=== PATIENT | male | born 1980 | race Caucasian/White ===

== ENCOUNTER → 2024-02-18 | Day surgery (SDC) | payer OTHER ==
[~2024-02-18] MED LIST: GLUCAGON FOR INJ 1 MG VIAL ONE; JARDIANCE25 MG PO; LIDOCAINE HCL 2% LOCAL INJ 5 ML SDV VIAL INJ ONE; LISINOPRIL5 MG PO; MIDAZOLAM HCL 2 MG/2 ML VIAL ONE; MONTELUKAST SOD10 MG PO; PROPOFOL IV EMULSION 10 MG/ML 20 ML VIAL ONE; SIMVASTATIN20 MG PO; TRULICITY1.5 MG/0.5 SQ
[2024-02-18] MEDS: LACTATED RINGER'S 1,000 ML ONE (13:38)
[2024-02-18] MEDS: DEXTROSE 5% 250ML 250 ML IV ONE (13:38)
[2024-02-18 15:10] VITALS: TEMP 97.2
[2024-02-18 15:30] VITALS: BP 160/80; PULSE 84; RESP 18; O2SAT 98
== END | disposition home or self-care (01) ==
LOC: OR 12:50
PROVIDERS: ATTEND Internal Medicine Gastroenterology
DX: R19.5 Other fecal abnormalities (principal); D12.4 Benign neoplasm of descending colon; D12.5 Benign neoplasm of sigmoid colon; K57.30 Diverticulosis of large intestine without perforation or abscess without bleeding; K64.8 Other hemorrhoids; G47.33 Obstructive sleep apnea (adult) (pediatric); I10 Essential (primary) hypertension; E78.5 Hyperlipidemia, unspecified; E11.9 Type 2 diabetes mellitus without complications; Z88.1 Allergy status to other antibiotic agents; Z88.0 Allergy status to penicillin; Z01.810 Encounter for preprocedural cardiovascular examination; Z79.84 Long term (current) use of oral hypoglycemic drugs; Z79.85 Long-term (current) use of injectable non-insulin antidiabetic drugs; Z79.899 Other long term (current) drug therapy; Z68.41 Body mass index [BMI] 40.0-44.9, adult
CPT/HCPCS: 45384; 45385; 93005; J1610; J2003; J2250; J2704; J7121; 45378